=== PATIENT | male | born 1990 | race Caucasian/White ===

== ENCOUNTER 2022-05-18 10:06 | Emergency (ER) | payer SELFPAY ==
[~2022-05-18] VITALS: Ht 179 cm; Wt 97.0 kg
[2022-05-18] MEDS ORDERED: ONDANSETRON 4 MG/2 ML (SDV) Z0FRAN IVP ONE (10:45)
[2022-05-18] MEDS ORDERED: NS IV 1000 ML 1,000 ML IV STA (10:53)
[2022-05-18 10:54] LABS: BASOPHILS % (AUTO) 0 % (0-10); EOSINOPHILS % (AUTO) 1 % (0-10); HEMATOCRIT 52 % (40-54); HEMOGLOBIN 18.8 g/dL (13.3-17.7); LYMPHOCYTES # (AUTO) 0.9 10^3/uL (1.0-4.0); LYMPHOCYTES % (AUTO) 20 % (12-44); MEAN CORPUSCULAR HEMOGLOBIN 33 pg (25-34); MEAN CORPUSCULAR HGB CONC 37 g/dL (32-36); MEAN CORPUSCULAR VOLUME 89 fL (80-99); MONOCYTES # (AUTO) 0.6 10^3/uL (0.0-1.0); MONOCYTES % (AUTO) 12 % (0-12); NEUTROPHILS # (AUTO) 3.1 10^3/uL (1.8-7.8); NEUTROPHILS % (AUTO) 67 % (42-75); PLATELET COUNT 250 10^3/uL (130-400); WHITE BLOOD COUNT 4.6 10^3/uL (4.3-11.0)
[2022-05-18 11:05] LABS: ALBUMIN 4.7 GM/DL (3.2-4.5); CHLORIDE 102 MMOL/L (98-107); POTASSIUM 3.7 MMOL/L (3.6-5.0); SODIUM 137 MMOL/L (135-145)
[2022-05-18 11:07] LABS: CALCIUM 9.9 MG/DL (8.5-10.1)
--- NOTE | 2022-05-18 11:07 | ED General ---
General Chief Complaint: General Problems/Pain Stated Complaint: VOMITING | FEVER Nursing Triage Note: PT STATES VOMITING AND FEVER FOR 10 DAYS, DIARRHEABODY ACHES AND CHILLS, DIZZY, STATESS BEING AN ALCOHOLIC AND TRYING TO QUIT, DRANK A LITTLE BIT LAST NIGHT-1 24 OZ TWISTED TEA AND 3 FIREBALL SHOOTERS Source of Information: Patient Exam Limitations: No Limitations (LAVON THOMSON) History of Present Illness Date Seen by Provider: May 18, 2022 Time Seen by Provider: 11:04 Initial Comments Patient is a 31-year-old male who presents ED with vomiting, fever, body aches chills for the past 10 days. Patient states symptoms started with feeling feverish and body aches. Started having some intermittent vomiting 1-2 episodes daily specially with eating. Reports bilious vomiting without any hematemesis. Started develop secondary diarrhea without any blood or mucus. Generalized abdominal discomfort and feels gassy. Patient reports subjective fever. States he does drink alcohol daily. Has been attempting to cut back recently over the past 2 to 3 weeks. He states he drinks a twisted tea daily with 4-6 fireball shots. States he attempted to stop a little over 2 years ago but started drinking again about a year and a half. Patient is wanting to stop. Does have associated dizziness feels like the room is spinning at times. This does occur while sitting or ambulating. Denies of any unilateral muscle weakness, visual changes, cough, shortness of breath, chest pain, facial droop, history of stroke, ear pain, hearing loss, ear ringing, history of coronary artery disease, COPD. Does have a history of asthma. Denies taking medication at home. No one else at home with similar symptoms (LAVON THOMSON) Allergies and Home Medications Allergies Coded Allergies: No Known Drug Allergies (Unverified , 05/18/22) Patient Home Medication List Home Medication List Reviewed: Yes (LAVON THOMSON) Ondansetron (Ondansetron Odt) 4 Mg Tab.rapdis, 4 MG SL Q4H PRN for NAUSEA/VOMITING Prescribed by: HEATH MCCAULEY on 05/18/22 [id number] Review of Systems Review of Systems Constitutional: chills, fever, malaise, weakness EENTM: No blurred vision, No double vision, No hoarseness, No mouth pain, No mouth swelling, No throat pain, No throat swelling Respiratory: No cough, No short of breath Gastrointestinal: abdominal pain, diarrhea, nausea, vomiting Genitourinary: No decreased output, No discharge Musculoskeletal: No back pain, No joint pain Skin: No change in color (LAVON THOMSON) All Other Systems Reviewed Negative Unless Noted: Yes (LAVON THOMSON) Past Kkzviyd-Jphzwk-Ufboxu Hx Patient Social History Tobacco Use?: Yes Tobacco type used: Cigarettes Smoking Status: Current Everyday Smoker Substance use?: Yes Substance type: Marijuana Alcohol Use?: Yes Alcohol type: Beer, Hard Liquor Alcohol Frequency: Daily (LAVON THOMSON) Past Medical History Surgery/Hospitalization HX: HTN, ASTHMA, SKIN GRAFT ON BACK WHEN LITTLE, ANXIETY (LAVON THOMSON) Physical Exam Vital Signs Vital Signs - First Documented 05/18/22 10:26 Temp 36.2 Pulse 65 Resp 20 B/P (MAP) 135/90 (105) Pulse Ox 96 O2 Delivery Room Air (YUSUF SIERRA MD) Vital Signs Capillary Refill : Less Than 3 Seconds (LAVON THOMSON) Height, Weight, BMI Height: '" Weight: lbs. oz. kg; 30.00 BMI Method: General Appearance: No Apparent Distress, WD/WN Eyes: Bilateral Eye Normal Inspection, Bilateral Eye PERRL, Bilateral Eye EOMI HEENT: PERRL/EOMI, TMs Normal, Normal ENT Inspection, Pharynx Normal Neck: Full Range of Motion, Normal Inspection, Non Tender, Supple Respiratory: Chest Non Tender, Lungs Clear, Normal Breath Sounds, No Accessory Muscle Use, No Respiratory Distress Cardiovascular: Regular Rate, Rhythm, No Edema, No Gallop, No JVD, No Murmur Gastrointestinal: Normal Bowel Sounds, No Organomegaly, No Pulsatile Mass, Non Tender, Soft Back: Normal Inspection, No CVA Tenderness, No Vertebral Tenderness Extremity: Normal Capillary Refill, Normal Inspection, Normal Range of Motion, Non Tender, No Calf Tenderness Neurologic/Psychiatric: Alert, Oriented x3, No Motor/Sensory Deficits, Normal Mood/Affect, workers compensation examiner II-XII Norm as Tested Skin: Normal Color, Warm/Dry (LAVON THOMSON) Progress/Results/Core Measures Suspected Sepsis SIRS Temperature: Pulse: 65 Respiratory Rate: 20 Laboratory Tests 05/18/22 10:44: White Blood Count 4.6 Blood Pressure 135 /90 Mean: 105 Laboratory Tests 05/18/22 10:44: Creatinine 1.14, Platelet Count 250, Total Bilirubin 1.1H (LAVON THOMSON) Results/Orders Lab Results Laboratory Tests Test 05/18/22 10:44 05/18/22 11:40 Range/Units White Blood Count 4.6 4.3-11.0 10^3/uL Red Blood Count 5.78 H 4.30-5.52 10^6/uL Hemoglobin 18.8 H 13.3-17.7 g/dL Hematocrit 52 40-54 % Mean Corpuscular Volume 89 80-99 fL Mean Corpuscular Hemoglobin 33 25-34 pg Mean Corpuscular Hemoglobin Concent 37 H 32-36 g/dL Red Cell Distribution Width 12.4 10.0-14.5 % Platelet Count 250 130-400 10^3/uL Mean Platelet Volume 9.0 9.0-12.2 fL Immature Granulocyte % (Auto) 0 % Neutrophils (%) (Auto) 67 42-75 % Lymphocytes (%) (Auto) 20 12-44 % Monocytes (%) (Auto) 12 0-12 % Eosinophils (%) (Auto) 1 0-10 % Basophils (%) (Auto) 0 0-10 % Neutrophils # (Auto) 3.1 1.8-7.8 10^3/uL Lymphocytes # (Auto) 0.9 L 1.0-4.0 10^3/uL Monocytes # (Auto) 0.6 0.0-1.0 10^3/uL Eosinophils # (Auto) 0.0 0.0-0.3 10^3/uL Basophils # (Auto) 0.0 0.0-0.1 10^3/uL Immature Granulocyte # (Auto) 0.0 0.0-0.1 10^3/uL Sodium Level 137 135-145 MMOL/L Potassium Level 3.7 3.6-5.0 MMOL/L Chloride Level 102 98-107 MMOL/L Carbon Dioxide Level 23 21-32 MMOL/L Anion Gap 12 5-14 MMOL/L Blood Urea Nitrogen 8 7-18 MG/DL Creatinine 1.14 0.60-1.30 MG/DL Estimat Glomerular Filtration Rate 88 BUN/Creatinine Ratio 7 Glucose Level 111 H 70-105 MG/DL Calcium Level 9.9 8.5-10.1 MG/DL Corrected Calcium 8.5-10.1 MG/DL Magnesium Level 2.1 1.6-2.4 MG/DL Total Bilirubin 1.1 H 0.1-1.0 MG/DL Aspartate Amino Transf (AST/SGOT) 98 H 5-34 U/L Alanine Aminotransferase (ALT/SGPT) 118 H 0-55 U/L Alkaline Phosphatase 133 40-136 U/L Total Protein 7.0 6.4-8.2 GM/DL Albumin 4.7 H 3.2-4.5 GM/DL Lipase 52 8-78 U/L Serum Alcohol < 10 <10 MG/DL Influenza Type A (RT-PCR) Not Detected Not Detecte Influenza Type B (RT-PCR) Not Detected Not Detecte SARS-CoV-2 RNA (RT-PCR) Not Detected Not Detecte Urine Color YELLOW Urine Clarity CLEAR Urine pH 8.0 5-9 Urine Specific [place] 1.010 L 1.016-1.022 Urine Protein 1+ H NEGATIVE Urine Glucose (UA) NEGATIVE NEGATIVE Urine Ketones TRACE H NEGATIVE Urine Nitrite NEGATIVE NEGATIVE Urine Bilirubin 1+ H NEGATIVE Urine Urobilinogen 1.0 < = 1.0 MG/DL Urine Leukocyte Esterase 1+ H NEGATIVE Urine RBC (Auto) NEGATIVE NEGATIVE Urine RBC NONE /HPF Urine WBC 2-5 /HPF Urine Squamous Epithelial Cells 0-2 /HPF Urine Crystals NONE /LPF Urine Bacteria TRACE /HPF Urine Casts NONE /LPF Urine Mucus NEGATIVE /LPF Urine Other FEW SPERM H /HPF Urine Culture Indicated NO (YUSUF SIERRA MD) My Orders Orders - YUSUF SIERRA MD Cbc With Automated Diff (05/18/22 10:35) Comprehensive Metabolic Panel (05/18/22 10:35) Magnesium (05/18/22 10:35) Ua Culture If Indicated (05/18/22 10:35) Covid 19 Inhouse Test (05/18/22 10:35) Influenza A And B By Pcr (05/18/22 10:35) Ondansetron Injection (Zofran Injectio (05/18/22 10:45) (YUSUF SIERRA MD) Vital Signs/I&O 05/18/22 05/18/22 10:26 12:52 Temp 36.2 36.2 Pulse 65 67 Resp 20 20 B/P (MAP) 135/90 (105) 141/96 Pulse Ox 96 97 O2 Delivery Room Air Room Air (YUSUF SIERRA MD) Vital Signs/I&O Capillary Refill : Less Than 3 Seconds (LAVON THOMSON) Blood Pressure Mean: 105 Departure Communication (PCP) Reviewed previous ER visits, H&P, lab testing. Patient with vomiting diarrhea over the past 10 days. No chest pain but reports some generalized abdominal discomfort. Patient has been urinating. Failure is feverish with chills. Hist ory of alcohol abuse. Takes about 5-6 shots of liquor daily and twisted tea daily. Reports weaning off alcohol wanting to eventually stop. No evidence of active withdrawal symptoms such as tachycardia, tremoring, change in mental status. Vomiting diarrhea concerning for viral, gastritis, gastroenteritis, colitis. Due to current complaint CBC, CMP, lipase, urinalysis was ordered. Due to generalized abdominal tenderness CT abdomen pelvis was ordered. CBC was grossly unremarkable. Normal white blood count. Chemistry bilirubin 1.1, ALT 118, AST 98. Normal electrolytes. Elevated liver enzymes likely secondary to alcohol versus fatty liver. Due to current complaint upper abdominal tenderness CT abdomen and pelvis was ordered. CT scan concerning for enteritis. No evidence of cirrhosis, ascites, abdominal mass. Patient without any hematemesis, mucousy stool, fever, recent antibiotic use, recent travel suggesting bacterial in nature. Suspect more viral related. Possible alcohol component from decrease in his alcohol intake. Patient was given 8 mg of Zofran and liter of fluid. Patient feeling much better. Was tolerating p.o. fluids at bedside. COVID influenza was negative. Will discharge with Zofran. Discussed clear liquid diet for the next 2 to 3 days and increase to more of a bland diet. Recommend following up with PCP 2 to 3 days for reevaluation. If any worsening symptoms such as abdominal pain, fever, bloody stool to return back to ED (LAVON THOMSON) Impression Primary Impression: Vomiting and diarrhea Disposition: 01 HOME, SELF-CARE Condition: Stable Departure-Patient Inst. Decision time for Depature: 12:46 (LAVON THOMSON) Referrals: [facility] (PCP/Family) Primary Care Physician Patient Instructions: Nausea and Vomiting, Adult ED Scripts Ondansetron (Ondansetron Odt) 4 Mg Tab.rapdis 4 MG SL Q4H PRN for NAUSEA/VOMITING, #8 TAB Prov: LAVON THOMSON 05/18/22 Work/School Note: Work Release Form Date Seen in the Emergency Department: May 18, 2022 Return to Work: May 20, 2022 ATTENDING PHYSICIAN NOTE: I was physically present as attending physician in the emergency department during the care of this patient. I reviewed chief complaint and triage notes and ordered initial labs accordingly. Care was then transitioned to HEATH Rosado. I was not otherwise directly involved in the decision making or delivery of care for this patient. (YUSUF SIERRA MD) LAVON THOMSON May 18, 2022 11:07 YUSUF SIERRA MD May 19, 2022 13:28
[2022-05-18 11:08] LABS: GLUCOSE 111 MG/DL (70-105)
[2022-05-18 11:09] LABS: CARBON DIOXIDE 23 MMOL/L (21-32)
[2022-05-18 11:10] LABS: BILIRUBIN,TOTAL 1.1 MG/DL (0.1-1.0)
[2022-05-18 11:11] LABS: ALKALINE PHOSPHATASE 133 U/L (40-136); CREATININE SERUM 1.14 MG/DL (0.60-1.30); GFR ESTIMATED 88
[2022-05-18 11:12] LABS: BUN/CREATININE RATIO 7
[2022-05-18 11:14] LABS: ALANINE AMINOTRANSFERASE 118 U/L (0-55); MAGNESIUM 2.1 MG/DL (1.6-2.4)
[2022-05-18 11:15] LABS: LIPASE 52 U/L (8-78)
[2022-05-18 11:53] LABS: CLARITY,URINE CLEAR; COLOR,URINE YELLOW; GLUCOSE, URINE (UA) NEGATIVE (NEGATIVE); KETONES,URINE TRACE (NEGATIVE); LEUKOCYTE ESTERASE ,URINE 1+ (NEGATIVE); NITRITE,URINE NEGATIVE (NEGATIVE); PROTEIN,URINE 1+ (NEGATIVE)
[2022-05-18] MEDS ORDERED: NS 100 ML (IVPB) BAG IV ONE (12:00)
[2022-05-18] MEDS ORDERED: HOLD METFORMIN - RECEIVED CONTRAST 20 ML VIAL IV SCH (12:00)
[2022-05-18] MEDS ORDERED: IOHEXOL 350 MG/ML 100 ML (OMNIPAQUE 350) VIAL IV ONE (12:00)
[2022-05-18 12:02] LABS: BACTERIA,URINE TRACE /HPF; SQUAMOUS EPITHELIAL CELL,UR 0-2 /HPF; URINE OTHER FEW SPERM /HPF
[2022-05-18 12:03] LABS: BILIRUBIN,URINE 1+ (NEGATIVE)
--- NOTE | 2022-05-18 12:25 | Diagnostic Imaging Report ---
EXAMINATION: CT abdomen and pelvis with intravenous contrast. TECHNIQUE: Multiple contiguous axial images were obtained through the abdomen and pelvis after the uneventful administration of intravenous contrast. All CT scans use one or more of the following dose optimizing techniques: Automated exposure control, MA and/or KvP adjustment based on patient size and exam type or iterative reconstruction. HISTORY: Mid to upper abdominal pain. Nausea and vomiting. COMPARISON: None available. FINDINGS: The heart is unremarkable. The included lung bases are clear. The liver, spleen, pancreas, adrenal glands, and kidneys have a normal appearance. The gallbladder is decompressed. The portal vein is patent. There is no pathologically enlarged mesenteric or retroperitoneal adenopathy. The bowel loops are nondilated. There is mild bowel wall hyperemia involving multiple loops of small bowel. The appendix is visualized in the right lower quadrant and has a normal appearance. There is no free fluid or free air. No acute osseous abnormalities. There is grade 1 anterolisthesis of L5 on S1 with bilateral pars defects at L5. The urinary bladder is decompressed with bladder wall thickening. There is no free air, loculated collection, or adenopathy in the pelvis. IMPRESSION: 1. Mild bowel wall hyperemia involving multiple loops of small bowel, which may represent enteritis. No bowel obstruction. No free fluid or free air. Normal appendix. 2. Grade 1 anterolisthesis of L5 on S1 with bilateral pars defects at L5. Dictated by: Dictated on workstation # [id number]
[2022-05-18] MEDS ORDERED: ONDA4TAB11 SL (12:47)
[2022-05-18 12:52] VITALS: BP 141/96
== END 2022-05-18 12:52 | disposition home or self-care (01) ==
LOC: EDUNIT# 10:06 → ER 10:08
DX: R11.2 Nausea with vomiting, unspecified (principal); R19.7 Diarrhea, unspecified; R10.84 Generalized abdominal pain; R74.8 Abnormal levels of other serum enzymes; F17.210 Nicotine dependence, cigarettes, uncomplicated; Z20.822 Contact with and (suspected) exposure to COVID-19; Z28.310 Unvaccinated for COVID-19
CPT/HCPCS: 74177; 80053; 81000; 83690; 83735; 85025; 87636; 99284; G0480; 36415; 80320